=== PATIENT | male | born 1980 | race Caucasian/White ===

== ENCOUNTER 2019-04-06 10:56 | Inpatient (IN) | payer OTHER ==
[~2019-04-06] VITALS: Ht 188 cm; Wt 87.9 kg
[2019-04-06 11:43] LABS: BASOPHILS % (AUTO) 0.2 % (0-1); EOSINOPHILS % (AUTO) 0 % (0-6); HEMOGLOBIN 14.6 g/dl (14.0-17.9); LYMPHOCYTES # (AUTO) 0.5 X10'3 (1.1-4.8); LYMPHOCYTES % (AUTO) 6.3 % (21-51); MEAN CORPUSCULAR HEMOGLOBIN 30.9 PG (27.0-31.0); MEAN CORPUSCULAR HGB CONC 34.6 g/dL (33.0-36.5); MEAN CORPUSCULAR VOLUME 89.2 FL (78-98); MEAN PLATELET VOLUME 7.4 FL (7.4-10.4); MONOCYTES # (AUTO) 0.7 X10'3 (0-0.9); MONOCYTES % (AUTO) 9.6 % (2-12); NEUTROPHILS # (AUTO) 6.1 X10'3 (1.8-7.7); NEUTROPHILS % (AUTO) 83.9 % (42-75); PLATELET COUNT 266 X10'3 (140-440); RED BLOOD COUNT 4.71 X10'6 (4.70-6.10); RED CELL DISTRIBUTION WIDTH 13.5 % (11.5-14.5); WHITE BLOOD COUNT 7.2 X10'3 (4.5-11.0)
[2019-04-06 11:44] LABS: CLARITY,URINE CLEAR (Clear); COLOR,URINE AMBER (Yellow); GLUCOSE, URINE NEGATIVE (Neg); KETONES,URINE >=80 mg/dl (Neg); LEUKOCYTE ESTERASE ,URINE NEGATIVE (Neg); NITRITES, URINE NEGATIVE (Neg); OCCULT BLOOD,URINE NEGATIVE (Neg); PROTEIN,URINE 30 mg/dl (Neg); UROBILINOGEN,URINE >=8.0 E.U/dL (0.2-1.0)
[2019-04-06 11:46] LABS: UA COLLECTION TYPE URINAL
[2019-04-06 11:54] LABS: BACTERIA,URINE FEW /HPF (Neg); MUCUS STRANDS MODERATE /LPF (Neg); RBC,URINE 0-2 /HPF (0-2); SQUAMOUS EPITHELIAL CELL,UR FEW /LPF (FEW); WBC,URINE 0-4 /HPF (0-4)
[2019-04-06 11:55] LABS: ALANINE AMINOTRANSFERASE 52 U/L (12-78); ALBUMIN 3.6 G/DL (3.4-5.0); ALBUMIN/GLOBULIN RATIO 0.9 (1.1-1.5); ALKALINE PHOSPHATASE 73 IU/L (46-116); ANION GAP 5 (8-16); ASPARTATE AMINO TRANSFERASE 30 U/L (10-37); BLOOD UREA NITROGEN 17 MG/DL (7-18); BUN/CREATININE RATIO 17.9 (5.4-32.0); CALCIUM 8.7 MG/DL (8.5-10.1); CHLORIDE 101 MMOL/L (99-107); CREATININE 0.95 MG/DL (0.60-1.10); GLUCOSE 99 MG/DL (70-104); POTASSIUM 3.8 MMOL/L (3.5-5.1); SODIUM 134 MMOL/L (135-145); TOTAL CARBON DIOXIDE 27.6 MMOL/L (24-32); TOTAL PROTEIN 7.5 G/DL (6.4-8.2); eGFR 89 ML/MIN
[2019-04-06] MEDS ORDERED: normal saline 1000ML IV soln IVB ONE (12:20)
[2019-04-06] MEDS ORDERED: piperacillin/tazo 3.375gm/50ml 50 ML IV ONE (12:25)
[2019-04-06] MEDS ORDERED: NO HOME MEDS (12:32)
[2019-04-06] MEDS ORDERED: HYDROmorphone inj. 0.5 MG/0.5 ML DISP.SYRIN IV PRN (12:55)
[2019-04-06] MEDS ORDERED: mag hydrox/Alum hydrox/simeth 30ml oral suspension PO PRN (12:55)
[2019-04-06] MEDS ORDERED: potassium Cl 40MEQ/NS 500ml 500 ML IV PRN ×2 (12:55)
[2019-04-06] MEDS ORDERED: potassium Cl 20 mEq SR tablet PO PRN ×2 (12:55)
[2019-04-06] MEDS ORDERED: acetaminophen 325mg tablet PO PRN (12:55)
[2019-04-06] MEDS ORDERED: ondansetron/PF 4mg/2ml inj IV PRN ×2 (12:55→16:10)
[2019-04-06] MEDS ORDERED: magnesium 2GM in 50ml NS 50 ML IV PRN (12:55)
[2019-04-06] MEDS ORDERED: magnesium 4gm in 100ml NS 100 ML IV PRN (12:55)
[2019-04-06] MEDS ORDERED: magnesium hydroxide 30ml (MOM) UD suspension PO PRN (12:55)
[2019-04-06] MEDS ORDERED: magnesium Cl slow-release 64mg tablet PO PRN (12:55)
[2019-04-06] MEDS ORDERED: BUPIVAcaine/PF 2.5 mg/ml (0.25%) 30ml vial ONE (13:59)
[2019-04-06] MEDS ORDERED: midazolam 2 mg/2 ml injection ONE (15:00)
[2019-04-06] MEDS ORDERED: propofol inj 20 ML IV ONE (15:06)
[2019-04-06] MEDS ORDERED: LIDOcaine 2% (20mg/ml) 5ml vial ONE (15:06)
[2019-04-06] MEDS ORDERED: rocuronium 10mg/ml inj IV ONE (15:06)
[2019-04-06] MEDS ORDERED: fentaNYL/PF 50MCG/1 ML 2ML syringe ONE (15:07)
[2019-04-06] MEDS ORDERED: dexamethasone sod phosphate 4mg/ml inj. ONE (15:08)
[2019-04-06] MEDS ORDERED: ondansetron/PF 4mg/2ml inj ONE (15:10)
[2019-04-06] MEDS ORDERED: neostigmine methylsulfate 1 MG/ML 10ml vial ONE (15:10)
[2019-04-06] MEDS ORDERED: sevoflurane 250ml liquid IH ONE (15:10)
[2019-04-06] MEDS ORDERED: glycopyrrolate 0.2mg/ml inj ONE (15:21)
[2019-04-06 15:38] VITALS: BP 117/76
--- NOTE | 2019-04-06 15:38 | NUR ---
Received from OR via JOHNNIE, accompanied by Anesthesiologist ROSE and report given by Anesthesiolgist. PATIENT WITH 20G PIV IN LEFT UE RUNNING LR AT 100. DENIES PAIN AT THIS TIME. VSS. 10L MASK ON WITH 100% SATURATIONS. ONE UMBILICAL BANDAID PRESENT AND IS CDI. Addendum: 04/06/19 at 1544 by Itz Bolaños RN, RN Amended: Links added.
[2019-04-06 15:48] VITALS: BP 128/86
[2019-04-06 15:58] VITALS: BP 134/93
[2019-04-06 16:08] VITALS: BP 127/93
[2019-04-06] MEDS ORDERED: ringers solution, lacted 1,000 ML IV SCH (16:08)
[2019-04-06] MEDS ORDERED: labetalol 20mg/4ml (5mg/ml) syringe IV PRN (16:10)
[2019-04-06] MEDS ORDERED: morphine 4 MG/ML inj SYRINge IV PRN ×2 (16:10)
[2019-04-06] MEDS ORDERED: fentaNYL/PF 50MCG/1 ML 2ML syringe IV PRN ×2 (16:10)
[2019-04-06] MEDS ORDERED: hydrALAZINE 20mg/ml inj. IV PRN (16:10)
[2019-04-06 16:18] VITALS: BP 130/87
[2019-04-06 16:28] VITALS: BP 125/87
--- NOTE | 2019-04-06 16:38 | NUR ---
ALL DC CRITERIA HAS BEEN MET. IV TAKEN OUT WITHOUT COMPLICATIONS. ALL INSTRUCTIONS COVERED AND ALL QUESTIONS ANSWERED. DRESSINGS CDI. OUT VIA WHEELCHAIR TO PERSONAL VEHICLE WHERE PATIENT WAS SECURED IN AND DRIVEN HOME BY FAMILY. Addendum: 04/06/19 at 1702 by Itz Bolaños RN, RN Amended: Links added.
[2019-04-07] MEDS ORDERED: K and/or MAG REPLACEMENT MC SCH (08:00)
== END 2019-04-06 17:45 | disposition home or self-care (01) | DRG 343 ==
LOC: ER 10:56 → SUR 3N 17:45
PROVIDERS: ADMIT Internal Medicine; ATTEND Internal Medicine
PROC: 0DTJ0ZZ Resection of Appendix, Open Approach (ICD-10-PCS; principal; 2019-04-06 14:57)
DX: K35.80 Unspecified acute appendicitis (principal)
CPT/HCPCS: 96365; 99285; Z7506; 36415; 74176; 80053; 81001; 85025; 87070; A7000; G0378; J1100; J2001; J2250; J2405; J2543; J2704; J2710; J3010; J3490; J7120